=== PATIENT | male | born 1965 | race Caucasian/White ===

== ENCOUNTER → 2024-08-30 09:06 | Outpatient (CLI) | payer BC, SELFPAY ==
--- NOTE | 2024-08-30 09:14 | DI.ECHO.S_ITS ---
[facility] : : [id number] : : [place] : : [id number] : : Phone: [phone] Echocardiogram Report + + :Name: DAQUAN WALLACE Study Date: 08/30/2024 Height: 72 in : :Hospital ReadingLocation: Weight: 190 lb : : Gender: Male BSA: 2.1 m2 : :: 1965 Age: 59 yrs BP: 111/64 mmHg: :Reason For Study: CORONARY ARTERY DISEASE : :Ordering Physician: SMITHA, : :NORA Dillon Performed By: Di Richardson : :Referring: NORA BONE W : + + Interpretation Summary The patient was in normal sinus rhythm during the exam. The patient had frequent PACs during the exam. The patient had frequent PVCs during the exam. Normal-sized LV. The ejection fraction is estimated to be 50-55%. There is basal posterolateral wall akinesis. The right ventricle is at the upper limits of normal in size. The right ventricular systolic function is normal. There is mild mitral regurgitation. There is mild tricuspid regurgitation. The right ventricular systolic pressure is estimated to be at least 22 mmHg based on an estimated right atrial pressure of 3 mm Hg. Procedure: A two-dimensional transthoracic echocardiogram with color flow and Doppler was performed. The study quality was technically adequate. There is no prior echocardiogram noted for this patient. The heart rate ranged between 59-67 bpm during the study. The patient was in normal sinus rhythm during the exam. The patient had frequent PACs during the exam. The patient had frequent PVCs during the exam. Left Ventricle: The left ventricle is normal in size and wall thickness. There is no thrombus. The ejection fraction is estimated to be 50-55%. There is basal posterolateral wall akinesis. MV E/A: 1.1 Med Peak E' Mustapha: 9.6 cm/sec E/E' med: 8.1. Right Ventricle: The right ventricle is at the upper limits of normal in size. The right ventricular systolic function is normal. Atria: The left atrial size is normal. Right atrial size is normal. There is no Doppler evidence for an interatrial shunt. Mitral Valve: The mitral valve leaflets appear to open well. The mitral valve is normal. There is mild mitral regurgitation. Aortic Valve: The aortic valve is trileaflet. The aortic valve opens well. There is discrete nodular thickening of the non- coronary cusp. The aortic valve is slightly calcified. There is no aortic valve stenosis. No aortic regurgitation is present. Tricuspid Valve: The tricuspid valve leaflets are thin and pliable. There is mild tricuspid regurgitation. The right ventricular systolic pressure is estimated to be at least 22 mmHg based on an estimated right atrial pressure of 3 mm Hg. Pulmonic Valve: The pulmonic valve is not well visualized. There is no pulmonic valvular regurgitation. Great Vessels: The aortic root is normal size. The dimensions of the ascending aorta are normal. The IVC is of normal diameter and collapses greater than 50% with a sniff. This suggests a low right atrial pressure of 3 mm Hg. Pericardium/ Pleura There is no pericardial effusion. There is no pleural effusion. MMode/2D Measurements & Calculations LVIDd: 5.3 cm LVOT diam: 2.3 cm LVIDs: 4.3 cm Ao root diam: 3.6 cm FS: 17.7 % asc Aorta Diam: 3.4 cm EPSS: 0.46 cm Ao Arch Diam (Prox Trans): 3.3 cm IVSd: 0.89 cm LVPWd: 0.61 cm LV portillo. diameter/BSA (cm/m^2): 2.5 LV sys. diameter/BSA (cm/m^2): 2.1 LA A2 area: 15.2 cm2 RA long axis: 4.9 cm LA A4 area: 16.4 cm2 RA area: 18.5 cm2 LA length (vol): 4.9 cm RA vol: 59.0 ml LA vol: 42.9 ml RA : 28.3 ml/m2 LA vol index: 20.6 ml/m2 IVC diam: 1.6 cm RVD1 (basal): 4.2 cm TAPSE: 2.2 cm Doppler Measurements & Calculations Ao V2 max: 114.9 cm/sec LVOT Max Mustapha: 77.1 cm/sec Ao V2 mean: 79.1 cm/sec LV V1 max P.4 mmHg Ao max P.3 mmHg LV V1 VTI: 17.5 cm Ao mean P.9 mmHg ALMA(I,D): 2.9 cm2 Ao V2 VTI: 23.9 cm ALMA(V,D): 2.7 cm2 sev ratio: 0.73 ALMA indexed to BSA (cm^2/m^2): 1.4 MV E max mustapha: 77.5 cm/sec TR max mustapha: 219.5 cm/sec MV A max mustapha: 69.5 cm/sec TR max P.3 mmHg MV E/A: 1.1 PA V2 max: 81.7 cm/sec Med Peak E' Mustapha: 9.6 cm/sec PA V2 mean: 55.6 cm/sec E/E' med: 8.1 PA mean P.4 mmHg Lat Peak E' Mustapha: 14.1 cm/sec PA pr(Accel): 18.6 mmHg E/E' lat: 5.5 E/e' average: 6.8 MV dec time: 0.20 sec SV(LVOT): 69.6 ml Reading Physician:05:[id number] PM
--- NOTE | 2024-08-30 09:14 | DI.NM.S_ITS ---
PROCEDURE: NM KIRBY PERF SPECT REST & STR Rest and exercise myocardial perfusion SPECT with gated imaging and ejection fraction RADIOPHARMACEUTICAL: 11.1 mCi Tc-99m sestamibi IV at rest and 25.7 mCi Tc-99m sestamibi IV at peak exercise. A one day-protocol was performed. INDICATIONS: CORONARY ARTERY DISEASE TECHNIQUE: Radiopharmaceutical was injected at peak stress test, and also at rest. SPECT images were obtained. SPECT myocardial perfusion images were displayed in short axis, horizontal long axis, and vertical long axis views. Gated images were reviewed using [employer] software. COMPARISON: None. CARDIAC STRESS: A standard Davi treadmill exercise tolerance test was performed by the patient under the supervision of an attending staff. The patient exercised for 12 minutes and 0 seconds; functional aerobic impairment (NIMO) is -34%. Hemodynamic data: There is normal blood pressure and heart rate response to exercise stress. Patient achieved 109% of maximum predicted heart rate at peak exercise. Appropriate BP response to exercise. Symptoms: Patient denied chest pain during exercise. EKG: No diagnostic EKG changes of ischemia; frequent PACs with brief, non-sustained run during early recovery; occasional PVCs. FINDINGS: Raw data: There is good myocardial labeling by radiotracer. No significant motion artifacts. Yfkq-lq-[id number] ratio is 0.37 (normal is less than 0.38 for sestamibi tracer, and less than 0.50 for thallium tracer). Left ventricle function: Gated images demonstrate normal left ventricle wall thickening. No segmental wall motion abnormality. No transient ischemic dilation; TID is 0.94 (normal less than 1.3). The left ventricle resting end-diastolic volume is 128 mL. Left ventricle stress ejection fraction is 73%; normal values are above 45%. Myocardial perfusion: There is a moderately intense fixed inferior wall and basal to mid inferolateral defect that improves with prone imaging but persists in the basal inferior and basal inferolateral wall defect suggesting prior infarction with artifacts. No definite ischemia. IMPRESSION: Abnormal treadmill nuclear stress test. 1) There is a moderately intense fixed inferior wall and basal to mid inferolateral defect that improves with prone imaging but persists in the basal inferior and basal inferolateral wall defect suggesting prior non-transmural infarction with artifacts. No definite ischemia. 2) Normal left ventricular size, wall motion, and systolic function (EF post stress 73%). 3) No diagnostic ST changes during exercise or recovery. 4) Frequent PACs and brief, non-sustained atrial runs during early recovery. 5) No angina during the study. 6) Very good exercise tolerance (12.8METs, NIMO -34%). Target heat rate reached. Appropriate BP response to exercise. 7) No prior nuclear stress test available for comparison. Dictated by: Franck Palm MD on 08/31/2024 at 13:14 Approved by: Franck Palm MD on 08/31/2024 at 13:19
== END ==
PROVIDERS: Referring Provider Nurse Practitioner; Visit Provider Nurse Practitioner
DX: I08.1 Rheumatic disorders of both mitral and tricuspid valves (principal); I25.10 Atherosclerotic heart disease of native coronary artery without angina pectoris; R94.39 Abnormal result of other cardiovascular function study
CPT/HCPCS: 78452; 93017; 93306; A9502